=== PATIENT | female | born 1965 | race African-American/Black ===

== ENCOUNTER 2016-05-11 23:02 | Emergency (ER) | payer OTHER ==
[~2016-05-11] VITALS: Ht 157.5 cm; Wt 90.7 kg
[~2016-05-11 23:02] MED LIST: CLINDAMYCIN HY300 MG PO; IBUPROFEN800 MG PO; MOTRIN800 MG PO; NEURONTIN100 MG PO; OXYCODONE HYDRO10 M1 PO; OXYCONTIN30 MG PO; PERCOCET 325 MG1 TA2 PO; SKELAXIN800 M1 PO; TRAMADOL HCL50 M1 PO; VICODIN5-300 PO
--- NOTE | 2016-05-11 23:39 | ED CARDIAC/CP/PALPITATIONS ---
History of Present Illness General Chief Complaint: Chest Pain Stated Complaint: CHEST PAIN X 2 DAYS WORSENING Source: patient, old records Exam Limitations: no limitations Vital Signs & Intake/Output Vital Signs & Intake/Output Vital Signs Date Time Temp Pulse Resp B/P Pulse O2 O2 Flow FiO2 Ox Delivery Rate 05/11 2317 98.0 60 18 131/76 100 Room Air ED Intake and Output 04 0000 04 1200 Intake Total Output Total Balance Patient 200 lb Weight Allergies Coded Allergies: MDX - Penicillin (Penicillin) (Severe, RESPIRATORY 08/14/15) MDX - Penicillin V (Severe, THROAT CLOSES 08/14/15) MDX - Seafood (Seafood) (UNKNOWN 08/14/15) MDX - Codeine (Intermediate, HEART PALPITATIONS, CHEST DISCOMFORT 08/14/15) MDX - Prochlorperazine (From COMPAZINE) (Intermediate, anxiety attack 08/14/15) Reconcile Medications Gabapentin (Neurontin) 100 MG CAP 1 CAP PO TID PAIN (Reported) HYDROCODONE/ACETAMINOPHEN (Hydrocodon-Acetaminophen 5-325) 1 TAB TAB 1 TAB PO Q6 PRN BREAKTHROUGH PAIN Ibuprofen (Motrin) 800 MG TAB 1 TAB PO TID PRN PAIN Metaxalone (Skelaxin) 800 MG TABLET 1 TAB PO TID PRN MUSCLE RELAXOR OXYCODONE HCL (Oxycodone Hydrochloride) 10 MG TAB 1 TAB PO BID PAIN (Reported ) OXYCODONE HCL (Oxycontin) [address] 1 TAB PO BID PAIN (Reported) Tramadol HCl 50 MG TABLET 1 TAB PO TID PRN PAIN Triage Note: PT TO ED C/O LEFT CHEST PAIN OFF AND ON FOR 2 DAYS. NON RADIATING, NO CHANGE WITH PALPATION OR INSPIRATION. DENIES N/V/DIZZINESS SKIN WARM AND DRY. 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 IS GETTING OVER A COLD AND IS UNDER A LOT OF STRESS Triage Nurses Notes Reviewed? yes Onset: Gradual Duration: week(s): (1) Timing: multiple episodes today Quality/Severity: pressure Location: central Radiation: no radiation Activities at Onset: none Aspirin Today: 325 mg x 1 (X 2) Associated Symptoms: COUGH HPI: 50-year-old female with history of asthma and hypertension, chronic active smoker who presents to the ER chief complaint of on and off chest pain for the last 2 days. She said when the chest pain comes it lasts a few minutes feels pressure-like in sensation. Pain radiates occasionally up to the throat. Last week she was having left arm pain. She states both the left arm pain and the chest pain go away with aspirin. She took 2 full aspirin prior to coming [facility]. No fever or chills. Positive cough. 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 Denies any recent throat pain or other symptoms. Past History Travel History Traveled to [place] past 21 day No Medical History Any Pertinent Medical History? see below for history Neurological: NONE EENT: NONE Cardiovascular: NONE Respiratory: asthma Gastrointestinal: GASTROENTRITIS Hepatic: NONE Renal: KIDNEY STONES Musculoskeletal: spinal stenosis, DEGENERATIVE DISK DISEASE Psychiatric: NONE Endocrine: NONE Blood Disorders: NONE Cancer(s): NONE DESTATICIZER FEEDER/Reproductive: NONE Surgical History Surgical History: cholecystectomy, , BILAT MASTITIS DRAINAGE PARTIAL HYSTERECTOMY Psychosocial History What is your primary language Lao Tobacco Use: Current Daily Use Daily Tobacco Use Amount/Type: => 5 Cigarettes daily ETOH Use: denies use Illicit Drug Use: denies illicit drug use Family History Comment: DENIES FAMILY HISTORY OF CAD Hx Contributory? No Review of Systems Review of Systems Constitutional: Denies: chills, diaphoresis, fever. EENTM: Denies: throat pain. Respiratory: Reports: cough. Denies: short of breath, sputum production. Cardiovascular: Reports: chest pain. Denies: palpitations, peripheral edema. GI: Denies: abdominal pain, nausea, vomiting. Genitourinary: Reports: no symptoms. Musculoskeletal: Reports: no symptoms. Skin: Reports: no symptoms. Neurological/Psychological: Reports: no symptoms. Hematologic/Endocrine: Denies: bruising, bleeding, polyuria, polydipsia. Immunologic/Allergic: Denies: splenectomy. All Other Systems: Reviewed and Negative Physical Exam Physical Exam General Appearance: well developed/nourished, alert, awake, mild distress Head: atraumatic, normal appearance Eyes: Bilateral: normal appearance, PERRL, EOMI. Ears, Nose, Throat: normal pharynx, normal ENT inspection Neck: normal inspection, supple, full range of motion Respiratory: normal breath sounds, chest non-tender, no respiratory distress Cardiovascular: regular rate/rhythm, normal peripheral pulses Peripheral Pulses: 2+ radial (R), 2+ radial (L) Gastrointestinal: soft, non-tender Extremities: normal inspection, normal capillary refill, normal range of motion, no edema Neurologic/Psych: no motor/sensory deficits, awake, alert, oriented x 3 Skin: intact, normal color, warm/dry Core Measures ACS in differential dx? Yes ASA ordered for poss ACS? 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 Severe Sepsis Present: No Septic Shock Present: No Progress Differential Diagnosis: AMI, aortic dissection, costochondritis, musculoskeletal pain, myocarditis, pericarditis, pneumonia, pneumothorax, pulmonary embolism, PUD/GERD, unstable angina Plan of Care: Orders Procedure Date/time Status TROPONIN LEVEL 05/12 050 Complete EKG 05/12 050 Active Add-on Test (ER Only) 05/12 0205 Active WESTERGREN SED RATE 05/12 010 Active Telemetry/Hub Bander 05/12 001 Active TROPONIN LEVEL 05/11 231 Complete COMPREHENSIVE METABOLIC PANEL 05/11 2314 Complete CBC WITHOUT DIFFERENTIAL 05/11 2314 Complete EKG 05/11 2303 Active Laboratory Tests 05/12/16 0512: Troponin I < 0.01, ESR Westergren Pending 05/12/16 0113: Anion Gap 7, Estimated GFR 53 L, BUN/Creatinine Ratio 16.4, Glucose 115 H, Calcium 9.2, Total Bilirubin 0.3, AST 16, ALT 37, Alkaline Phosphatase 94, Troponin I < 0.01, Total Protein 6.7, Albumin 3.8, Globulin 2.9, Albumin/ Globulin Ratio 1.3, CBC w Diff NO MAN DIFF REQ, RBC 4.55, MCV 80.4 L, MCH 26.5 L, RDW 14.6 H, MPV 8.1, Gran % 60.2, Lymphocytes % 31.6, Monocytes % 5.4, Eosinophils % 2.3, Basophils % 0.5, Absolute Granulocytes 5.5, Absolute Lymphocytes 2.9, Absolute Monocytes 0.5, Absolute Eosinophils 0.2, Absolute Basophils 0, PUBS MCHC 33.0 05/11/16 2315: APTT Cancelled Diagnostic Imaging: Viewed by Me: Radiology Read. Discussed w/RAD: Radiology Read. CXR Impression: PATIENT: SALVADOR POWELL PRESENT AGE: 50 PATIENT ACCOUNT NO: [id number] : 65 LOCATION: [facility] ORDERING PHYSICIAN: MEGA GARCIA MD SERVICE DATE: 05/11/16 EXAM TYPE: RAD - XRY-CHEST XRAY , PA AND LATERAL EXAMINATION: XR CHEST CLINICAL INFORMATION: Cough. Chest pain. COMPARISON: Chest x-ray 07/07/2011 TECHNIQUE: 2 views of the chest were obtained. FINDINGS: No significant abnormality is noted involving the heart, lungs, mediastinum, bony thorax or soft tissues. IMPRESSION: Unremarkable examination. DICTATED BY: ELYSE BOURGEOIS MD DATE/TIME DICTATED:05/12/1611 CATERPILLAR TRACTOR OPERATOR:BISHOP DATE/TIME TRANSCRIBED:05/12/1611 CONFIDENTIAL, DO NOT COPY WITHOUT APPROPRIATE AUTHORIZATION. <Electronically signed in Other Vendor System> SIGNED BY: ELYSE BOURGEOIS MD 05/12/1615 Initial ED EKG: NSR, ST elevation (MILD DIFFUSE) Prior EKG: unchanged Repeat EKG: unchanged (nsr @ 57 bpm, UNCHANGED) Rhythm Strip: normal sinus rhythm Departure Departure Time of Disposition: 558 Disposition: HOME OR SELF CARE Condition: Stable Clinical Impression Primary Impression: Chest pain at rest Referrals: TIFFANY ARREOLA,DILAN MOONEY MD,NAN (PCP/Family) Additional Instructions: Follow up with the semi truck driver listed in the office. Return to the ER for any changing or worsening symptoms. Take a daily 81 mg aspirin. Avoid any strenuous exercise until cleared to do so. Departure Forms: Customer Survey General Discharge Information Critical Care Note Critical Care Note Critical Care Time: non-applicable
--- NOTE | 2016-05-12 00:16 | RADIOLOGY REPORT ---
EXAMINATION: XR CHEST CLINICAL INFORMATION: Cough. Chest pain. COMPARISON: Chest x-ray 07/07/2011 TECHNIQUE: 2 views of the chest were obtained. FINDINGS: No significant abnormality is noted involving the heart, lungs, mediastinum, bony thorax or soft tissues. IMPRESSION: Unremarkable examination.
[2016-05-12 01:24] LABS: ABSOLUTE BASOPHIL COUNT 0 /CUMM (0.0-0.2); ABSOLUTE EOSINOPHIL COUNT 0.2 /CUMM (0.0-0.7); ABSOLUTE GRANULOCYTE CT 5.5 /CUMM (1.4-6.5); ABSOLUTE LYMPH COUNT 2.9 /CUMM (1.2-3.4); ABSOLUTE MONOCYTE COUNT 0.5 /CUMM (0.10-0.60); BASOPHIL % 0.5 % (0.0-2.0); EOSINOPHIL % 2.3 % (0-5); GRANULOCYTE % 60.2 % (42.2-75.2); HEMATOCRIT 36.6 % (37-47); MEAN CORPUSCULAR HGB 26.5 PG (27.0-31.0); MEAN CORPUSCULAR VOLUME 80.4 FL (81.0-99.0); MEAN PLATELET VOLUME 8.1 FL (7.4-10.4); PLATELET COUNT 221 /CUMM (130-400); RBC DISTRIBUTION WIDTH 14.6 % (11.5-14.5); RED BLOOD CELL CT 4.55 /CUMM (4.20-5.40); WHITE BLOOD CELL COUNT 9.1 /CUMM (4.8-10.8)
[2016-05-12 06:27] VITALS: BP 125/59
== END 2016-05-12 06:30 ==
LOC: ERH 23:02
PROVIDERS: Emergency Medicine
DX: R07.9 Chest pain, unspecified (principal)
CPT/HCPCS: 93005; 93010